=== PATIENT | male | born 2000 | race Caucasian/White ===

== ENCOUNTER 2018-05-12 13:43 | Emergency (ER) | payer SELFPAY ==
[2018-05-12 13:51] VITALS: PULSE 93; TEMP 98; O2SAT 98
[2018-05-12 13:55] VITALS: RESP 16
[2018-05-12] MEDS ORDERED: Tdap Vaccine 0.5 ml Vial (10-64 yrs) IM ONE ×2 (14:00→14:03)
--- NOTE | 2018-05-12 14:04 | ED PDOC ---
Lower Extremity Pain/Injury Time Seen by Provider: 05/12/18 13:50 Chief Complaint (Nursing): Lower Extremity Problem/Injury Chief Complaint (Provider): Lower Extremity Problem/Injury History Per: Patient History/Exam Limitations: no limitations Onset/Duration Of Symptoms: Days (x1) Additional Complaint(s): Patient is a 18 y/o male who presents to the ED for evaluation of a wound on his left pinky toe. Patient reports that his left pinky toe was cut by a metal object at around 21:00 yesterday. Per patient wound was cleaned with peroxide and they put a bandage on the cut. Last tetanus is unknown. He denies any other medical problems. - Ankle/Foot Description Of Injury: Laceration (left pinky toe) Past Medical History Reviewed: Historical Data, Nursing Documentation, Vital Signs Vital Signs: Last Vital Signs Temp 98 F 05/12/18 13:50 Pulse 93 H 05/12/18 13:50 Resp 16 05/12/18 13:53 BP 157/111 H 05/12/18 13:50 Pulse Ox 98 05/12/18 13:50 - Medical History PMH: No Chronic Diseases - Surgical History Surgical History: No Surg Hx - Family History Family History: States: Unknown Family Hx - Immunization History Hx Tetanus Toxoid Vaccination: No (unknown) - Home Medications Home Medications: Ambulatory Orders Medication Instructions Recorded Clindamycin [Cleocin] 300 mg PO BID #14 cap 04/28/15 Cephalexin [Keflex] 500 mg PO BID #14 capsule 05/12/18 - Allergies Allergies/Adverse Reactions: Allergies Allergy/AdvReac Type Severity Reaction Status Date / Time No Known Allergies Allergy Unverified 04/28/15 17:18 Review of Systems ROS Statement: Except As Marked, All Systems Reviewed And Found Negative Constitutional: Negative for: Fever Musculoskeletal: Positive for: Foot Pain (left pinky toe cut) Physical Exam - Reviewed Nursing Documentation Reviewed: Yes Vital Signs Reviewed: Yes - Physical Exam Appears: Positive for: Non-toxic, No Acute Distress Head Exam: Positive for: ATRAUMATIC Skin: Positive for: Normal Color, Warm Eye Exam: Positive for: Normal appearance Neck: Positive for: Normal Respiratory: Negative for: Respiratory Distress Extremity: Positive for: Other (superficial 2 cm linear laceration to left 5th digit) Neurologic/Psych: Positive for: Alert - ECG O2 Sat by Pulse Oximetry: 98 (RA) Pulse Ox Interpretation: Normal Medical Decision Making Medical Decision Making: Time: 14:00 Initial Plan: --Tetanus --RAD - Left foot XR without acute fracture or dislocation. Pt denies pain in ER Wound irrigated. Antibiotic ointment and dressing applied. ~ Scribe Attestation: Documented by Donovan Hall, acting as a scribe for Flory Johansen PA-C Provider Scribe Attestation: All medical record entries made by the Scribe were at my direction and personally dictated by me. I have reviewed the chart and agree that the record accurately reflects my personal performance of the history, physical exam, medical decision making, and the department course for this patient. I have also personally directed, reviewed, and agree with the discharge instructions and disposition. Disposition - Clinical Impression Clinical Impression: Toe laceration, Tetanus toxoid vaccination administered at current visit - Patient ED Disposition Is Patient to be Admitted: No Counseled Patient/Family Regarding: Diagnosis, Need For Followup, Rx Given - Disposition Disposition: Routine/Home Disposition Time: 14:27 Condition: GOOD Prescriptions: Cephalexin [Keflex] 500 mg PO BID #14 capsule Instructions: Toe Injury Forms: [employer] (Ecuadorean)
[2018-05-12 14:35] VITALS: BP 161/84
--- NOTE | 2018-05-12 14:35 | RAD ---
Date of service: 05/12/2018 PROCEDURE: Left 5th toe Radiographs. HISTORY: 5th toe injury COMPARISON: None. FINDINGS: BONES: No acute fracture. JOINTS: Normal. SOFT TISSUES: Normal. OTHER FINDINGS: None. IMPRESSION: No demonstrated fracture or dislocation.
== END 2018-05-12 14:55 | disposition home or self-care (01) ==
LOC: H.ER 13:43
DX: S91.119A Laceration without foreign body of unspecified toe without damage to nail, initial encounter (principal); Z23 Encounter for immunization; W26.8XXA Contact with other sharp object(s), not elsewhere classified, initial encounter